=== PATIENT | male | born 1935 | race Caucasian/White ===

== ENCOUNTER 2022-06-24 13:23 | Emergency (ER) | payer OTHER ==
[2022-06-24 14:11] LABS: CARBON DIOXIDE,CO2 24.7 mmol/L (21.0-32.0); POTASSIUM,K 4.1 mmol/L (3.5-5.1)
[2022-06-24] MEDS ORDERED: Ketorolac 30 MG/ML SDV IVPUSH ONE (14:13)
[2022-06-24] MEDS ORDERED: Furosemide 40 MG/4 ML VIAL IVPUSH ONE (14:53)
[2022-06-24] MEDS ORDERED: Aspirin 81 MG Tab.Chew PO ONE (16:34)
[2022-06-24] MEDS ORDERED: Clopidogrel 75 MG Tab PO ONE (16:36)
== END 2022-06-24 17:25 ==
LOC: MW.ED 13:23
DX: I50.9 Heart failure, unspecified (principal); R77.8 Other specified abnormalities of plasma proteins; Z88.8 Allergy status to other drugs, medicaments and biological substances; Z79.82 Long term (current) use of aspirin; Z20.822 Contact with and (suspected) exposure to COVID-19
CPT/HCPCS: 36415; 71045; 80053; 83880; 84484; 85025; 87635; 93005; 96374; 96375; 99285; A9270; J1885; J1940; U0002

== ENCOUNTER 2022-08-04 14:07 | Emergency (ER) | payer OTHER ==
[2022-08-04 16:49] LABS: BLOOD UREA NITROGEN,BUN 33 mg/dL (7.0-18.0); CARBON DIOXIDE,CO2 23.7 mmol/L (21.0-32.0); CHLORIDE,CL 101 mmol/L (98-107); GLUCOSE RANDOM 95 mg/dL (74-106); POTASSIUM,K 3.7 mmol/L (3.5-5.1); SODIUM,NA 139 mmol/L (136-148)
[2022-08-04 17:17] LABS: ESTIMATED GFR 60 mL/min (>60)
[2022-08-04] MEDS: Albuterol/Ipratropium 3.0-0.5 MG/3 ML Neb Soln NEB ONE (20:52)
[2022-08-04] MEDS: Azithromycin 250 MG Tab PO ONE (22:08)
[2022-08-04] MEDS: methylPREDNISolone Sodium Succinate 125 MG/2 ML SDV IVPUSH ONE (22:09)
== END 2022-08-04 22:22 | disposition home or self-care (01) ==
LOC: MW.ED 14:07
DX: R06.02 Shortness of breath (principal); Z88.8 Allergy status to other drugs, medicaments and biological substances; Z79.899 Other long term (current) drug therapy; Z20.822 Contact with and (suspected) exposure to COVID-19
CPT/HCPCS: 36415; 71045; 80053; 83735; 83880; 84443; 84484; 85025; 87635; 96374; 99285; A9270; J2930; 99284; J7620-GY; U0002

== ENCOUNTER 2022-08-08 15:36 | Emergency (ER) | payer OTHER ==
[2022-08-08 18:34] LABS: CARBON DIOXIDE,CO2 22.8 mmol/L (21.0-32.0); POTASSIUM,K 4.1 mmol/L (3.5-5.1)
[2022-08-08] MEDS ORDERED: Ondansetron 4 MG/2 ML SDV IVPUSH ONE (20:40)
[2022-08-08] MEDS ORDERED: Sodium Chloride 0.9% 500 ML IV ONE (20:40)
[2022-08-08] MEDS ORDERED: Octyl 2-Cyanoacrylate 1 g/1 mL 1 APPLIC PEN TOP ONE (20:41)
== END 2022-08-08 23:15 | disposition home or self-care (01) ==
LOC: MW.ED 15:36
DX: R06.00 Dyspnea, unspecified (principal); T14.8XXA Other injury of unspecified body region, initial encounter; E86.0 Dehydration; I25.2 Old myocardial infarction; Z88.8 Allergy status to other drugs, medicaments and biological substances; Z79.82 Long term (current) use of aspirin; Z79.899 Other long term (current) drug therapy
CPT/HCPCS: 36415; 71045; 80053; 83735; 84484; 85025; 85610; 93005; 96361; 96374; 99285; J2405; J7030

== ENCOUNTER 2022-08-14 14:14 | Emergency (ER) | payer OTHER ==
[2022-08-14] MEDS ORDERED: Sodium Chloride 0.9% 2.5 ML Syringe FLUSH PRN (14:51)
[2022-08-14] MEDS ORDERED: Sodium Chloride 0.9% 10 ML Syringe FLUSH PRN (14:51)
[2022-08-14 15:21] LABS: CARBON DIOXIDE,CO2 25.9 mmol/L (21.0-32.0); POTASSIUM,K 3.5 mmol/L (3.5-5.1)
[2022-08-14] MEDS: Sodium Chloride 0.9% 500 ML IV SCH ×2 (15:29→18:17)
[2022-08-14] MEDS ORDERED: Iopamidol 755 MG/ML 500 ML Multipack Bottle IVPUSH ONE (15:51)
[2022-08-14] MEDS ORDERED: Sodium Chloride 0.9% 500 ML IV SCH (18:15)
== END 2022-08-14 20:14 | disposition home or self-care (01) ==
LOC: MW.ED 14:14
DX: R53.1 Weakness (principal); Z20.822 Contact with and (suspected) exposure to COVID-19; Z88.8 Allergy status to other drugs, medicaments and biological substances; Z79.82 Long term (current) use of aspirin; Z79.899 Other long term (current) drug therapy
CPT/HCPCS: 36415; 71045; 74177; 80053; 81001; 83605; 83690; 84484; 85025; 85610; 87635; 96360; 99285; J3490; J7040; Q9967; U0002

== ENCOUNTER 2022-08-18 13:54 | Emergency (ER) | payer OTHER ==
[2022-08-18 16:08] LABS: CARBON DIOXIDE,CO2 26.5 mmol/L (21.0-32.0); POTASSIUM,K 3.4 mmol/L (3.5-5.1)
== END 2022-08-18 18:28 | disposition home or self-care (01) ==
LOC: MW.ED 13:54
DX: R06.02 Shortness of breath (principal); I25.2 Old myocardial infarction; I45.10 Unspecified right bundle-branch block; Z88.8 Allergy status to other drugs, medicaments and biological substances; Z79.82 Long term (current) use of aspirin; Z79.899 Other long term (current) drug therapy
CPT/HCPCS: 36415; 71045; 71045-26; 80053; 83880; 84484; 85025; 93005; 99285

== ENCOUNTER 2022-08-20 14:59 | Emergency (ER) | payer OTHER ==
[2022-08-20] MEDS ORDERED: LORazepam 1 MG Tab PO ONE (15:10)
== END 2022-08-20 16:37 | disposition home or self-care (01) ==
LOC: MW.ED 14:59
DX: F41.0 Panic disorder [episodic paroxysmal anxiety] (principal); E78.00 Pure hypercholesterolemia, unspecified; I10 Essential (primary) hypertension; I25.2 Old myocardial infarction; Z86.16 Personal history of COVID-19; Z88.8 Allergy status to other drugs, medicaments and biological substances; Z79.82 Long term (current) use of aspirin; Z79.899 Other long term (current) drug therapy
CPT/HCPCS: 99283; A9270

== ENCOUNTER 2022-08-21 09:29 | Emergency (ER) | payer OTHER ==
[2022-08-21] MEDS ORDERED: LORazepam 0.5 MG Tab PO ONE (09:36)
== END 2022-08-21 11:10 | disposition home or self-care (01) ==
LOC: MW.ED 09:29
DX: F41.0 Panic disorder [episodic paroxysmal anxiety] (principal); I10 Essential (primary) hypertension; I25.2 Old myocardial infarction; Z86.16 Personal history of COVID-19; Z88.8 Allergy status to other drugs, medicaments and biological substances; Z79.82 Long term (current) use of aspirin; Z79.899 Other long term (current) drug therapy
CPT/HCPCS: 99284; A9270

== ENCOUNTER 2022-09-20 20:04 | Emergency (ER) | payer OTHER ==
[2022-09-20] MEDS ORDERED: LORazepam 2 MG/ML SDV IVPUSH ONE (20:52)
[2022-09-20] MEDS ORDERED: Sodium Chloride 0.9% 500 ML IV SCH (21:00)
[2022-09-20 21:16] LABS: CARBON DIOXIDE,CO2 24.7 mmol/L (21.0-32.0); POTASSIUM,K 4.2 mmol/L (3.5-5.1)
[2022-09-20 21:22] LABS: CORONAVIRUS COVID-19 NAA NEGATIVE (NEGATIVE); INFLUENZA A NAA NEGATIVE (NEGATIVE); INFLUENZA B NAA NEGATIVE (NEGATIVE)
== END 2022-09-20 23:45 | disposition home or self-care (01) ==
LOC: MW.ED 20:04
DX: R05.9 Cough, unspecified (principal); J44.9 Chronic obstructive pulmonary disease, unspecified; I11.0 Hypertensive heart disease with heart failure; I50.9 Heart failure, unspecified; E78.00 Pure hypercholesterolemia, unspecified; I25.2 Old myocardial infarction; Z86.16 Personal history of COVID-19; Z88.8 Allergy status to other drugs, medicaments and biological substances; Z79.82 Long term (current) use of aspirin; Z79.899 Other long term (current) drug therapy; Z20.822 Contact with and (suspected) exposure to COVID-19
CPT/HCPCS: 0240U; 36415; 71045; 80053; 83735; 83880; 84484; 85025; 93005; 96374; 99284; J2060; J7040

== ENCOUNTER 2022-09-24 01:25 | Emergency (ER) | payer OTHER ==
[~2022-09-24 01:25] MED LIST: EPINEPHrine 1:10,000 1 MG/10 ML Syringe IV ONE; Sodium Bicarbonate 8.4% 50 MEQ/50 ML Syringe IV ONE
[2022-09-24] MEDS ORDERED: EPINEPHrine 1:10,000 1 MG/10 ML Syringe IV ONE ×5 (01:26→02:13)
[2022-09-24] MEDS ORDERED: Norepinephrine 4 MG in Dextrose 5% in Water 246 ML IV SCH ×2 (01:50)
[2022-09-24] MEDS ORDERED: Sodium Chloride 0.9% 10 ML Syringe FLUSH PRN (01:57)
[2022-09-24] MEDS ORDERED: Sodium Chloride 0.9% 2.5 ML Syringe FLUSH PRN (01:57)
[2022-09-24] MEDS ORDERED: Sodium Chloride 0.9% 1,000 ML IV ONE (01:57)
[2022-09-24] MEDS ORDERED: Aspirin 300 MG Supp RECTAL STA (01:58)
[2022-09-24] MEDS ORDERED: Heparin Sodium/0.45% NaCl 500 ML IV SCH (02:00)
[2022-09-24] MEDS ORDERED: Tenecteplase 50 MG Kit ONE (02:09)
[2022-09-24] MEDS ORDERED: Heparin Sodium/0.45% NaCl 500 ML ONE (02:14)
[2022-09-24] MEDS ORDERED: Aspirin 300 MG Supp ONE (02:19)
[2022-09-24 02:30] LABS: BLOOD UREA NITROGEN,BUN 14 mg/dL (7.0-18.0); CARBON DIOXIDE,CO2 13.8 mmol/L (21.0-32.0); CHLORIDE,CL 110 mmol/L (98-107); GLUCOSE RANDOM 335 mg/dL (74-106); LIPASE 108 U/L (73-393); POTASSIUM,K 5.1 mmol/L (3.5-5.1); SODIUM,NA 144 mmol/L (136-148)
[2022-09-24 02:31] LABS: ESTIMATED GFR 50 mL/min (>60)
[2022-09-24] MEDS ORDERED: Tenecteplase 50 MG Kit IV ONE (03:00)
== END 2022-09-24 03:50 | disposition expired ==
LOC: MW.ED 01:25
DX: R09.2 Respiratory arrest (principal); I21.9 Acute myocardial infarction, unspecified; E78.00 Pure hypercholesterolemia, unspecified; I10 Essential (primary) hypertension; Z88.8 Allergy status to other drugs, medicaments and biological substances; Z79.82 Long term (current) use of aspirin; Z79.899 Other long term (current) drug therapy
CPT/HCPCS: 31500; 36415; 43752; 51702; 71045; 80053; 83605; 83690; 83735; 84484; 85025; 85610; 85730; 92950; 93005; 96361; 96365; 96375; 96376; 99285; J0171; J1644; J3101; J7030; J7060